=== PATIENT | male | born 1955 | race African-American/Black ===

== ENCOUNTER 2017-02-02 20:54 | Emergency (ER) | payer OTHER ==
[~2017-02-02 20:54] MED LIST: ASAB PO; CARBAT300 PO; CELEXA40 MG PO; COGEN1 PO; DIABET2.5 PO; DIOVAN HC1 PO; DIOVAN320 MG PO; GEODON80 PO; LIPITOR20 PO; ONGLYZA5 MG PO; PLAVIX PO; PLETAL50 PO; PREV30 PO; SEROQUEL300 MG PO; TOPXL50 PO; TRAZODONE150 MG PO; UNITHROID100 MCG PO; ZANTAC150 MG PO
[2017-03-31] MEDS ORDERED: LANTUS SC (10:20)
[2017-03-31] MEDS ORDERED: TRICOR145 PO (10:21)
[2017-03-31] MEDS ORDERED: KAPIDEX60 MG PO (10:21)
[2017-03-31] MEDS ORDERED: SINGULAIR1 PO (10:21)
[2017-03-31] MEDS ORDERED: MEVACOR40 MG PO (10:22)
[2017-03-31] MEDS ORDERED: CAT1 PO (10:24)
[2017-03-31] MEDS ORDERED: NEUR100 PO (10:25)
[2017-03-31] MEDS ORDERED: FLOMAX4 PO (10:26)
[2017-03-31] MEDS ORDERED: MYRBETRIQ50 MG PO (10:26)
[2017-03-31] MEDS ORDERED: AMB10 PO (10:28)
[2017-03-31] MEDS ORDERED: TRAZODONE150 MG PO (10:28)
[2017-04-06] MEDS ORDERED: PCET PO (11:45)
[2017-04-06] MEDS ORDERED: C5 PO (11:45)
== END 2017-02-03 01:03 | disposition left against medical advice (07) ==
LOC: ER 20:54
DX: Z53.21 Procedure and treatment not carried out due to patient leaving prior to being seen by health care provider (principal); R73.9 Hyperglycemia, unspecified; Z79.82 Long term (current) use of aspirin
CPT/HCPCS: 82962